=== PATIENT | female | born 1975 | race Caucasian/White ===

== ENCOUNTER → 2020-06-19 | Outpatient (CLI) | payer MEDICARE, OTHER ==
--- NOTE | 2020-06-19 15:40 | Diagnostic Imaging Report ---
EXAMINATION: CT of the maxillofacial region HISTORY: Status post fall, hitting nasal bone. Pain. History of sinusitis. COMPARISON: None available TECHNIQUE: Multidetector helical axial images were acquired through the orbits and maxillary region without contrast. Dose modulation, iterative reconstruction, and/or weight based adjustment of the mA/kV was utilized to reduce the radiation dose to as low as reasonably achievable. FINDINGS: Bones: No nasal bones, orbital or maxillary fractures. Facial soft tissues: Unremarkable. Paranasal sinuses and drainage pathways: The frontal, ethmoidal, sphenoid and maxillary sinuses are clear. The ostiomeatal units, fronto-nasal and spheno-ethmoidal recesses are clear. Orbits contents: Unremarkable. Nasal septum: Midline. Anatomic variations: No significant anatomic variations. Dentition: No acute abnormality of the visualized teeth. IMPRESSION: 1. No acute fractures. 2. The paranasal sinuses and drainage pathways are clear. Signed by: Dr. Tawana Vital M.D. on 06/19/2020 3:37 PM
== END ==
LOC: CT 13:45
PROVIDERS: ATTEND Family Medicine
DX: J32.9 Chronic sinusitis, unspecified (principal)
CPT/HCPCS: 70486